=== PATIENT | female | born 1950 | race African-American/Black ===

== ENCOUNTER 2018-05-22 16:04 | Emergency (ER) | payer MEDICARE, MEDICAID ==
[~2018-05-22] VITALS: Ht 172.7 cm; Wt 72.0 kg
[2018-05-22] MEDS ORDERED: MAGNESIUM/ALUMINUM HYDROXIDE/SIMETHICONE 30ML UDC PO STA (16:19)
[2018-05-22] MEDS ORDERED: VISCOUS LIDOCAINE 2% 15 ML UDC PO STA (16:19)
[2018-05-22] MEDS ORDERED: ASPIRIN 81MG TABLET PO ONE (16:30)
[2018-05-22 16:44] LABS: BASOPHILS % 0.6 % (0.0-2.0); EOSINOPHILS % 2.8 % (0.0-5.0); HEMATOCRIT. 35.7 % (36.0-48.0); HEMOGLOBIN. 12.2 g/dL (12.0-16.0); MEAN CORPUSCULAR HEMOGLOBIN 32.1 pg (28.0-32.0); MEAN PLATELET VOLUME 7.7 fl (7.4-10.4); NEUTROPHILS % 59.6 % (40.0-76.0); PLATELET 156 x1000/uL (130-400); RED CELL DISTRIBUTION WIDTH 13.4 % (11.6-14.6)
[2018-05-22 16:49] LABS: CHLORIDE 110 mEq/L (98-107)
[2018-05-22 20:39] VITALS: BP 123/66
== END 2018-05-22 20:41 ==
LOC: ER 16:04
DX: R07.89 Other chest pain (principal); R06.02 Shortness of breath; F03.90 Unspecified dementia, unspecified severity, without behavioral disturbance, psychotic disturbance, mood disturbance, and anxiety; F20.9 Schizophrenia, unspecified; Z98.890 Other specified postprocedural states
CPT/HCPCS: 36415; 71045; 83880; 84484; 93005; 99284